=== PATIENT | male | born 1975 | race Caucasian/White ===

== ENCOUNTER 2021-01-23 10:36 | Day surgery (SDC) | payer OTHER ==
[~2021-01-23] VITALS: Ht 188 cm; Wt 98.5 kg
[~2021-01-23 10:36] MED LIST: FLAGYL500 MG PO; LEVAQUIN 5500 MG/TA1 PO; NO HOME MEDICATIONS; PERCOCET 325 MG1 TA2 PO; WELLBUTRIN 100100 MG PO
[2021-01-23 11:26] VITALS: BP 116/73; PULSE 71; TEMP 98.1
[2021-01-23] MEDS ORDERED: ULTRAM 50MG TAB50 MG PO (15:58)
[2021-01-23 16:17] VITALS: TEMP 98.7
[2021-01-23 16:46] VITALS: BP 114/64; PULSE 61
--- NOTE | 2021-01-23 16:46 | NUR ---
PT ARRIVED TO MEDICAL FLOOR WITH MINA JEAN FROM PACU. THE PATIENT IS NOT COMPLAINING OF PAIN AT THIS TIME. HE IS HUNGRY, THIS RN SHOWED THE PATIENT HOW TO ORDER FOOD. THERE ARE NO FURTHER CONCERNS AT THIS TIME.
[2021-01-23 17:00] VITALS: BP 107/56; PULSE 56
--- NOTE | 2021-01-23 17:55 | NUR ---
PT STABLE AND NOT REQUESTING ANY PAIN MEDICATION. NO NAUSEA AT THIS TIME. PATIENT HAS EATEN, AND DRANK FLUIDS. THERE ARE NO OTHER CONCERS. WILL DISCHARGE THE PATIENT AT THIS TIME.
== END 2021-01-23 18:33 | disposition home or self-care (01) ==
LOC: SDCO 10:36 → MEDICAL 16:30 → SDCO 18:33
DX: K35.33 Acute appendicitis with perforation, localized peritonitis, and gangrene, with abscess (principal); Z20.822 Contact with and (suspected) exposure to COVID-19
CPT/HCPCS: OP; J0330; J1100; J1885; J2250; J2405; J2704; J3010; J7120

== ENCOUNTER 2021-12-06 11:00 | Outpatient (RCR) | payer OTHER ==
[~2021-12-06 11:00] MED LIST changes: +ULTRAM 50MG TAB50 MG PO
== END 2021-12-24 | disposition home or self-care (01) ==
LOC: WSPT
DX: S96.912D Strain of unspecified muscle and tendon at ankle and foot level, left foot, subsequent encounter (principal); M79.671 Pain in right foot; X58.XXXD Exposure to other specified factors, subsequent encounter